=== PATIENT | female | born 1960 | race Caucasian/White ===

== ENCOUNTER 2023-09-03 07:49 | Outpatient (REF) | payer BC, SELFPAY ==
--- NOTE | ~2023-09-03 | XR_ITS ---
EXAMINATION: XR ANKLE, RIGHT CLINICAL INFORMATION: Pain in unspecified ankle and joints of unspecified foot. COMPARISON: None available. TECHNIQUE: AP, lateral, and mortise views of the right ankle. FINDINGS: The bones are diffusely demineralized. Asymmetric narrowing along the medial aspect of the mortise with sclerosis along the subjacent talar dome. Diffuse soft tissue swelling at the ankle. Irregularity along the inferior aspects of the medial and lateral malleolus with hypertrophic change. Large plantar calcaneal spur. Degenerative changes along the dorsal aspect of the midfoot. XR/XR ankle RT min 3V IMPRESSION: 1. Diffuse soft tissue swelling. 2. Asymmetric narrowing along the medial aspect of the mortise with sclerosis along the subjacent talar dome. 3. Large plantar calcaneal spur.
== END 2023-09-03 07:50 | disposition home or self-care (01) ==
LOC: HO.HOSX 07:49
PROVIDERS: Visit Provider Physician Assistant
DX: M19.071 Primary osteoarthritis, right ankle and foot (principal)
CPT/HCPCS: 73610

== ENCOUNTER 2023-09-03 09:48 | Outpatient (AMB) | payer BC, SELFPAY ==
--- NOTE | 2023-09-03 10:02 | A.OFFVIS_ITS ---
Vital Signs 09/03/23 10:06 Height 5 ft Weight 215 lb BMI 42.0 Intake Visit Reasons: [employer]ING [employer]TER-Acute Right ankle pain Intake Note: Keily is a 63 year old female who presents today as a new patient for a evaluation for her right ankle pain. Patient reports she had a fall about 07/2023 where she injured her right shoulder and her right ankle. She states that she was seen [facility] on 11/2022 and 07/2023 where they told her she needs surgery and injection which gave her mild relief. Patient is here for a second opinion. She expresses that she has a MRI. Allergies No Known Allergies Allergy (Verified 09/03/23 10:05) HPI HPI [employer]ING [employer]TER-Acute Right ankle pain: Details: 63-year-old female who presents in the office today, as a new patient, for an evaluation of right ankle pain. While in the office today the patient reports she fell in 07/2023 injuring her right shoulder and right ankle. She claims to have been evaluated at [facility] in 11/2022 and 07/2023. She states she was informed she needed surgery. She was also given an injection, which gave her mild relief. She reports having an MRI prior to today?s appointment. She is interested in a second opinion for her treatment. [facility] Social History (Updated 09/03/23 @ 10:06 by Katia Banuelos) Alcohol intake: never Patient Tobacco Use Status: Never used Tobacco Current occupational status: unemployed Review of Systems Const All systems reviewed & are unremarkable except as noted in HPI and below Physical Exam Vital Signs: BMI result Body Mass Index 42.0 Const General: cooperative and no acute distress Orientation/consciousness: patient oriented x3 Resp Effort & Inspection: normal respiratory effort and able to speak in complete sentences Cardio Peripheral pulses: Peripheral pulses 2+ throughout Skin General skin exam: no rashes or lesions noted Neuro General: patient oriented x3 Extrem Other: Right ankle: Significant edema on the lateral aspect of the right ankle. Limited ROM with dorsiflexion and plantarflexion. NVI. Assessment & Plan Assessment & Plan (1) Osteoarthritis of right ankle: Code(s): M19.071 - Primary osteoarthritis, right ankle and foot Category: Medical Qualifiers: Osteoarthritis type: unspecified Qualified Code(s): M19.071 - Primary osteoarthritis, right ankle and foot Plan Ms. Schumacher is a 63-year-old female who presents in the office today, as a new patient, for an evaluation of right ankle pain. While in the office today the patient reports she fell in 07/2023 injuring her right shoulder and right ankle. She claims to have been evaluated at [facility] in 11/2022 and 07/2023. She states she was informed she needed surgery. She was also given an injection, which gave her mild relief. She reports having an MRI prior to today?s appointment. She is interested in a second opinion for her treatment. Patient has been previously seen by [facility], who have tried conservative treatments including bracing and cortisone injections, which have given minimal help. She reports surgical intervention of an ?ankle replacement? was recommended. She is interested in a second opinion today to see if there is anything that can be done in the meantime to prolong surgery. Patient reports she is currently caring for her father who had a stroke and for her mother who is blind. Therefore, a prescription for a topical pain cream and a prescription for diclofenac sodium 75 mg PO BID was sent to the pharmacy today. The patient was offered a lace up ankle brace which she has declined at this time. She reports she already has this brace at home. She was also given the information for a compression sleeve she can obtain over the counter to assist with edema in the right ankle. Follow-up will be PRN, or sooner if needed. X-rays of the right ankle which were obtained while in the office today and were reviewed by me, Sabina Sherman PA-C, revealed significant osteoarthritis. Orders: Orders XR ankle RT min 3V Today M25.579 - Pain in unspecified ankle and joints of unspecified foot Medications: New diclofenac sodium 75 mg PO BID 60 tabs 0RF 30 days Patient Instructions: Scribed by [facility], for Sabina Sherman PA-C on 09/03/2023 at 9:50 am, EST. Coding Level of Care Code New Pt Level 3 (92961) Diagnoses Osteoarthritis of right ankle, unspecified osteoarthritis type M19.071 Osteoarthritis type: unspecified
[2023-09-03 10:06] VITALS: BMI 42.0
== END 2023-09-03 10:28 | disposition home or self-care (01) ==
PROVIDERS: PCP Internal Medicine; Visit Provider Physician Assistant
DX: M19.071 Primary osteoarthritis, right ankle and foot (principal)
CPT/HCPCS: 99204